=== PATIENT | male | born 1935 | race Caucasian/White ===

== ENCOUNTER 2018-10-29 01:46 | Inpatient (IN) | payer MEDICARE, OTHER | END 2018-10-31 14:35 | disposition home or self-care (01) | LOC: 2DH 01:46 | DX: I47.1 Supraventricular tachycardia (principal); I50.32 Chronic diastolic (congestive) heart failure; I48.91 Unspecified atrial fibrillation; I11.0 Hypertensive heart disease with heart failure; I35.0 Nonrheumatic aortic (valve) stenosis; I49.5 Sick sinus syndrome; Z79.01 Long term (current) use of anticoagulants; I48.92 Unspecified atrial flutter ==